=== PATIENT | male | born 1940 | race Caucasian/White ===

== ENCOUNTER 2017-08-09 12:38 | Day surgery (SDC) | payer OTHER ==
[~2017-08-09 12:38] MED LIST: LISI-519 PO; METF500T PO
[2017-08-09 13:27] VITALS: BP 150/81; PULSE 85; RESP 18; TEMP 98; O2SAT 96
[2017-08-09] MEDS ORDERED: LIDOCAINE HCL 1% 20 ML VIAL ONE (14:19)
--- NOTE | 2017-08-09 14:23 | RADRPT ---
EXAM DATE/TIME: 08/09/2017 13:28 [place] COMPARISON: No previous studies available for comparison. EXTERNAL COMPARISON: [facility], US THYROID , Jul 15 2017. INDICATIONS : 1.9 cm solid right thyroid nodule. MEDICAL HISTORY : Hypertension. Diabetes. Intestine carcinoma. Thyroid disease. SURGICAL HISTORY : Hip replaced. Intestine removed. ENCOUNTER: Initial ACUITY: 1 month PAIN SCORE: 0/10 LOCATION: Right neck ORGAN: Right thyroid lobe SPECIMENS: Four fine needle aspirate(s) submitted for pathologic evaluation. DEVICE: 22 gauge needle Post procedure scanning reveals no hematoma or other complication. The possibility does exist that the tissue obtained will be non-diagnostic. If the sample is non-glenis gnostic a repeat biopsy or surgical biopsy may need to be performed. TECHNIQUE: 1. Ultrasound guidance for needle biopsy. 2. Needle biopsy. The risks, benefits and alternatives to the procedure were explained and verbal and written consent w as obtained. The site was prepped in sterile fashion. Full sterile technique was used, including ca p, mask, sterile gloves and gown and a large sterile sheet. Hand hygiene and 2% chlorhexidine and/or betadine/alcohol prep was utilized per protocol for cutaneous antisepsis. The skin and subcutaneous tissues were infiltrated with local anesthetic solution. Sterile gel and sterile probe cover were u tilized for ultrasound guidance. With the patient on the ultrasound table, images were obtained. A needle was advanced into the identified target and the number of specimens as above obtained and malhotra bmitted for pathologic evaluation. The patient tolerated the procedure well and left the ultrasound suite in stable condition. CONCLUSION: Uncomplicated ultrasound guided needle biopsy. Chandrakant Bustillos MD on August 09, 2017 at 14:21 Board Certified Radiologist. This report was verified electronically.
== END 2017-08-09 14:34 | disposition home or self-care (01) ==
LOC: HRAD 12:38 → HRIP 12:41 → HRAD 14:34
PROVIDERS: ATTEND Internal Medicine Hematology & Oncology
DX: E04.1 Nontoxic single thyroid nodule (principal)
CPT/HCPCS: 10022; 76942; 88172; 88173